=== PATIENT | male | born 1995 | race Hispanic/Latino ===

== ENCOUNTER 2023-09-14 22:30 | Inpatient (IN) | payer BC ==
--- OUTSIDE RECORDS SUMMARY | 2023-09-14 23:26 | XMS REPORT | Continuity of Care Document ---
:1995 Author Organization [facility] t Address [address] [facility] [address] [place] [id number] Care Team Providers Name Role Phone Jame Schneider Attending Clinician Unavailable Problems Condition Condition Condition Status Onset Resolution Last Treating Co mments Source Name Details Category Date Date Treatment Clinician Date HTN HTN Diagnosis Active Common (hypertens (hypertens Sp robyn ion), ion), - CHI benign benign [facility] Mixed Mixed Diagnosis Active Common hyperlipid hyperlipid Sp robyn emia emia [facility] Type 2 Type 2 Problem Active Common diabetes diabetes Spirit mellitus mellitus - [facility] with other with other 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 Noncomplia Noncomplia Diagnosis Active Common nce with nce with Spirit dietary dietary - [facility] restrictio restrictio [facility] Limited Limited Diagnosis Active Commo n range of range of Spirit motion of motion of - CH I shoulder shoulder [facility] Allergies, Adverse Reactions, Alerts This patient has no known allergies or adverse reactions. Medications Ordered Filled Start Stop Current Ordering Indication Dosage Frequency Signature Comments Components Source Medication Medication Date Date Medication? Clinician (SIG) Name Name Pietro Woodalldrewtonya 2018-11- No Jame 2 capsules Common 2-13 03-12 Schneider with meals Spirit 00:00: 00:00 - [facility]I 00 :00 [facility] Januvia Januvia 2019-0 Yes Jame 1 tablet C ommon 7-25 Schneider Spirit 00:00: - [facility]I 00 [facility] Lisinopril Lisinopril Yes Jame 1 tablet Common Schneider [facility] Metformin Metformin Yes Jame 1 tablet Common HCl HCl Schneider with meals [facility] Atorvastati Atorvastati Yes Jame 1 tablet Common n Calcium n Calcium Schneider Spir [facility] Victoza Victoza 2020- No Jame inject 1.8 Common 02-07 Schneider mg sq once Spirit 00:00 a day - : [facility] Procedures This patient has no known procedures. Encounters Start End Encounter Admission Attending Care Care Encounter Source Date/Time Date/Time Type Type Clinicians Facility Department ID 2021-12-24 Outpatient Schneider, [facility] [id number] Common 11:15:23 Jame [id number] [facility] 2019-11-10 2019-11-10 [id number] Common 08:00:00 08:00:[address] [facility] 2019-06-22 2019-06-22 [facility] [id number] Common 09:00:00 09:00:[address] [facility] 2019-05-23 2019-05-23 [facility] [id number] Common 14:00:00 14:00:[address] [facility] 2019-03-27 2019-03-27 [facility] [id number] Common 12:47:00 12:47:[address] [facility] 2019-01-09 2019-01-09 [facility] [id number] Common 09:15:00 09:15:[address] [facility] 2018-11-30 2018-11-30 [facility] [id number] Common 10:06:00 10:06:[address] [facility] 2018-09-05 2018-09-05 [facility] [id number] Common 11:15:00 11:15:[address] [facility] 2018-08-08 2018-08-08 [facility] [id number] Common 10:30:00 10:30:[address] [facility] 2018-08-05 2018-08-05 [facility] [id number] Common 14:32:00 14:32:[address] [facility] 2018-05-23 2018-05-23 [facility] [id number] Common 11:15:00 11:15:[address] [facility] 2018-03-21 2018-03-21 [facility] [id number] Common 11:15:00 11:15:[address] [facility] Results This patient has no known results.
[2023-09-14 23:38] VITALS: BMI 33.6
[2023-09-14] MEDS ORDERED: ZOLPIDEM TARTRATE 5 MG TABLET PO PRN (23:41)
[2023-09-14] MEDS ORDERED: ONDANSETRON 4 MG/2 ML VIAL IV PRN (23:41)
[2023-09-14] MEDS ORDERED: ACETAMINOPHEN 500 MG TAB PO PRN (23:41)
--- NOTE | 2023-09-14 23:46 | P.HP ---
Certification for Inpatient Patient admitted to: Observation With expected LOS: <2 Midnights Patient will require the following post-hospital care: None Practitioner: I am a practitioner with admitting privileges, knowledge of patient current condition, hospital course, and medical plan of care. Services: Services provided to patient in accordance with Admission requirements found in Title 42 Section 412.3 of the Code of Federal Regulations Patient History Date of Service: 09/15/23 Reason for admission: Left groin abscess History of Present Illness: 30-year-old male with a past medical history of hypertension, diabetes, presented to outside emergency room with left groin abscess x1 week. He reports fever x1 day, that has resolved, he reports drainage to distal left groin abscess, erythema drainage tender to touch. He denies recent injury, recent infection, trauma, shortness of breath, cough, chest pain. Plan to admit for left groin abscess surgery to consult for incision and drainage in the a.m. Allergies No Known Allergies Allergy (Unverified 09/14/23 23:30) - Past Medical/Surgical History Has patient received pneumonia vaccine in the past: Yes Diabetic: Yes -: HTN -: DM Past Surgical History: Patient denies surgical history - Social History Smoking Status: Never smoker Alcohol use: Yes CD- Drugs: No Caffeine use: Yes Place of Residence: Home Review of Systems 10-point ROS is otherwise unremarkable Physical Examination - Physical Exam General: Alert, In no apparent distress, Oriented x3 HEENT: Atraumatic, Normocephalic, PERRLA Neck: Supple, 2+ carotid pulse no bruit, JVD not distended Respiratory: Clear to auscultation bilaterally, Normal air movement Cardiovascular: No edema, Normal pulses, Regular rate/rhythm Capillary refill: <2 Seconds Gastrointestinal: Normal bowel sounds, Soft and benign Musculoskeletal: No clubbing, No swelling Integumentary: Other (Left groin abscess, erythema, tender to touch, with serosanguineous drainage.) Neurological: Normal speech, Normal strength at 5/5 x4 extr Assessment and Plan - Plan Assessment plan Left inguinal abscess Hypertension Diabetes DVT prophylaxis SCDs Assessment plan Left inguinal abscess Surgery to consult, infectious disease to consult, IV Levaquin, IV cefepime, As needed analgesics, antiemetics, Trend WBCs, Hypertension Diabetes Resume appropriate home medications A1c in the a.m. N.p.o. after midnight Full code DVT prophylaxis SCDs Discharge Plan: Home Plan to discharge in: 24 Hours - Advance Directives Does patient have a Living Will: No Does patient have a Durable POA for Healthcare: Yes - Code Status/Comfort Care Code Status: Full Code Physician Review: Patient Assessed, Agree with Above Assessment and Plan Critical Care: No Time Spent Managing Pts Care (In Minutes): 50
[2023-09-15 03:46] LABS: Hematocrit 38.1 % (39.6-49.0); Lymphocytes % 20.8 % (15.3-44.8); MCV 83.2 fL (80-100); MPV 8.4 fL (7.6-11.3); Platelets 264 thou/uL (152-406); RBC Red Blood Cell Count 4.58 M/uL (4.33-5.43)
[2023-09-15 03:47] LABS: Magnesium 1.9 mg/dL (1.6-2.4); Potassium 3.2 mEq/L (3.5-5.1)
[2023-09-15] MEDS ORDERED: POTASSIUM CL 40 MEQ in NA CHLORIDE 0.9% 500 ML IV SCH (05:00)
[2023-09-15] MEDS: KCL 20 MEQ/100 mL IVPB 100 ML IV SCH ×2 (05:18→08:23)
[2023-09-15] MEDS ORDERED: NA CHLORIDE 0.9% 250 ML ONE (05:28)
[2023-09-15] MEDS ORDERED: CEFEPIME 1 GM in NA CHLORIDE 0.9% 100 ML IV SCH (09:00)
[2023-09-15] MEDS ORDERED: VANCOMYCIN 2 GM in NA CHLORIDE 0.9% 500 ML IVPB ONE (11:30)
[2023-09-15 12:25] LABS: Specific Gravity > 1.030 (1.005-1.030); Urine Bacteria None Seen /HPF (<20); Urine Bilirubin NEGATIVE (Negative); Urine Blood Negative (Negative); Urine Clarity Extremely Turbid (Clear); Urine Color Light-Yellow (Yellow); Urine Glucose 4+ (Over) (Negative); Urine Mucus Slight /HPF (None Seen); Urine Protein TRACE (Negative); Urine RBC <5 /HPF (None Seen); Urine Urobilinogen Normal (Normal); Urine pH 5.5 (5.0-7.0)
[2023-09-15] MEDS ORDERED: LIDOCAINE 2% MPF 5 ML VIAL ONE (13:01)
[2023-09-15] MEDS ORDERED: NA CHLORIDE 0.9% 1,000 ML ONE (13:02)
[2023-09-15] MEDS ORDERED: HYDROMORPHONE HCL 2 MG/ML inj ONE (13:02)
[2023-09-15] MEDS ORDERED: MIDAZOLAM HCL 2 MG/2 ML INJ ONE (13:02)
[2023-09-15] MEDS ORDERED: propofoL 200 MG/20 ML VIAL IV ONE (13:02)
--- NOTE | 2023-09-15 13:52 | P.OP ---
Preoperative diagnosis: Abscess of the left groin Postoperative diagnosis: The same Primary procedure: Incision, drainage, sharp debridement of abscess to the left groin Anesthesia: General Estimated blood loss: Less than 10 cc Specimen: None sent Operative Technique: The patient brought the operating room and placed supine on the table. After the induction of adequate general endotracheal anesthesia, the area of the left leg, perineal area was scrubbed with a Betadine solution, he was draped in the usual aseptic manner. Attention was turned toward towards this area that was draining pus on the left thigh. This was opened with an 11 blade for a distance of approximately 1-1/2 cm. We were now able to place a finger inside us to see that extended upward for approximately 4 inches. This hemostat was placed and through this incision, a counterincision was made over the tip, and 1/4 inch Chester drain was now fed down to the insertion site. The drain was then tied on itself. The abscess cavity itself was curetted using a cutting surgical curette, and debrided with a cutting 11 blade. The abscess also had a inferior component. This extended down towards the posterior part of the upper thigh and the general direction of the perineal body. At the depth of this a hemostat was inserted, a counterincision was made over the tips, once again a. Chester drain was brought up through this incision, and tied on itself. This abscess cavity was also communicating with the 1 on top. These were all broken down again using a cutting surgical curette. At this point adequate drainage having been established, the area was covered with a surgical dressing. At the end of procedure he was in a stable condition was sent to the recovery room. Needle sponge instrument count were correct. Total size of the abscess cavities measured approximately 6 cm x 4 cm on the upper part and approximately 4 cm x 3 cm on the lower part with the depth of the abscess being approximately 2 cm total Complications: None Drain(s): Other (2/4 inch Tani drains) Transferred to: Recovery Room Condition: Good
[2023-09-15 14:02] VITALS: O2SAT 100
--- NOTE | 2023-09-15 14:08 | P.PN ---
Subjective Date of Service: 09/15/23 Chief Complaint: Left groin abscess Status post I&D by Dr. Coleman today. No fever. Physical Examination - Vital Signs Temperature: 97.9 F Blood Pressure: 149/92 Pulse: 86 Respirations: 12 Pulse Ox (%): 98 - Studies Laboratory Data (last 24 hrs) 09/15/23 09/15/23 02:10 02:10 WBC 9.70 Hgb 13.5 L Hct 38.1 L Plt Count 264 Sodium 136 Potassium 3.2 L BUN 13 Creatinine 0.66 L Glucose 252 H Magnesium 1.9 Assessment And Plan - Plan Physical Exam General: Alert, In no apparent distress, Oriented x3 Neck: Supple, 2+ carotid pulse no bruit, JVD not distended Respiratory: Clear to auscultation bilaterally, Normal air movement Cardiovascular: No edema, Normal pulses, Regular rate/rhythm Gastrointestinal: Normal bowel sounds, Soft and benign Musculoskeletal: No clubbing, No swelling Integumentary: Left groin abscess, erythema, tender to touch, with serosanguineous drainage. Neurological: Normal speech, Normal strength at 5/5 x4 extr Diagnosis Left inguinal abscess Hypertension Diabetes Plan: Left inguinal abscess Status post I&D by Dr. Coleman Continue IV cefepime and vancomycin. Follow deep tissue wound cultures. As needed analgesics, antiemetics, Hypertension Resume home medications DM type II Uncontrolled Hemoglobin A1c is 12.5 I recommended switching his metformin to insulin therapy for better blood sugar control but patient would like to confer with his PCP to make decision regarding treatment for his high hemoglobin A1c. Aggressive insulin sliding scale. Lantus insulin for now. Full code DVT prophylaxis: Lovenox Discharge Plan: Home
[2023-09-15] MEDS: HYDROMORPHONE HCL 1 MG/ML INJ ONE ×2 (14:35→14:40)
[2023-09-15] MEDS: INSULIN GLARGINE 100 UNIT/ML SQ SCH (15:34)
[2023-09-15] MEDS: CEFEPIME 2 GM in NA CHLORIDE 0.9% 100 ML IV SCH (16:42)
--- NOTE | 2023-09-15 17:09 | P.CNS ---
Date of Consult: 09/15/23 Reason for Consult: left groin abscess Chief Complaint: Left groin abscess History of Present Illness: Patient is a 28 yo male with no significant past medical history who presented to the ED due to worsening left groin abscess. He reports the abscess has been present for about 1 week for which he was prescribed dicloxacillin po by a doctor in [place], without improvement in symptoms. Patient was admitted for left groin abscess; general surgery and infectious diseases consulted. Allergies No Known Allergies Allergy (Unverified 09/14/23 23:30) - Past Medical/Surgical History Diabetic: Yes -: HTN -: DM - Social History Alcohol use: Yes CD- Drugs: No Caffeine use: Yes Place of Residence: Home Review of Systems 10-point ROS is otherwise unremarkable Integumentary: Other (left groin abscess) Physical Examination Temp Pulse Resp BP Pulse Ox 97.9 F 84 14 131/70 95 09/15/23 16:00 09/15/23 16:00 09/15/23 16:00 09/15/23 16:00 09/15/23 16:00 General: Alert, In no apparent distress, Oriented x3 HEENT: Atraumatic, Normocephalic, PERRLA Neck: Supple, JVD not distended Respiratory: Clear to auscultation bilaterally, Normal air movement Cardiovascular: No edema, Normal pulses Gastrointestinal: Normal bowel sounds, Soft and benign Musculoskeletal: No clubbing, No swelling Integumentary: Other (left groin abscess with purulent drainage) Neurological: Normal speech, Normal strength at 5/5 x4 extr, Normal tone, Normal affect Laboratory Data (last 24 hrs) 09/15/23 09/15/23 02:10 02:10 WBC 9.70 Hgb 13.5 L Hct 38.1 L Plt Count 264 Sodium 136 Potassium 3.2 L BUN 13 Creatinine 0.66 L Glucose 252 H Magnesium 1.9 Microbiology Data - Reviewed Imagings Data: - Reviewed Conclusions/Impression: Problem List Left Groin Abscess Left Groin Abscess - On Cefepime and Vancomycin (09/15-) - Pending I&D - Wound culture 09/15: pending - No leukocytosis. Afebrile. Recommendations - Continue Cefepime and Vancomycin for now. Pending I&D. Follow up with wound culture results. - Continue wound care per surgery/wound care team - Monitor for worsening signs/symptoms of infection - Follow up with surgery report Case discussed with Andrew Rico
[2023-09-15] MEDS ORDERED: Levofloxacin 750mg IV 750 MG/150 ML BAG IV SCH (20:00)
[2023-09-15] MEDS: VANCOMYCIN 1.5 GM in NA CHLORIDE 0.9% 500 ML IVPB SCH (21:09)
[2023-09-15] MEDS: HYDROCODONE/APAP 5/325 MG TAB PO PRN (21:23)
[2023-09-16] MEDS: CEFEPIME 2 GM in NA CHLORIDE 0.9% 100 ML IV SCH ×3 (01:19→17:40)
[2023-09-16 03:10] LABS: Absolute Lymphocytes (CBC) 2.1 K/uL (0.7-4.9); Hematocrit 41.1 % (39.6-49.0); Lymphocytes % 18.1 % (15.3-44.8); MCV 84.5 fL (80-100); MPV 8.3 fL (7.6-11.3); Platelets 289 thou/uL (152-406); RBC Red Blood Cell Count 4.86 M/uL (4.33-5.43)
--- NOTE | 2023-09-16 08:18 | P.PN ---
Date of Service: 09/16/23 Chief Complaint: Left groin abscess Subjective: patient seen and examined at bedside. Denies any new or worsening complaints at this time. s/p I&D of left groin abscess yesterday, tolerated procedure well. Physical Examination Temp Pulse Resp BP Pulse Ox 97.9 F 70 16 135/71 98 09/16/23 04:00 09/16/23 04:00 09/16/23 04:00 09/16/23 04:00 09/16/23 04:00 General: Alert, In no apparent distress, Oriented x3 HEENT: Atraumatic, Normocephalic, PERRLA Neck: Supple, JVD not distended Respiratory: Clear to auscultation bilaterally, Normal air movement Cardiovascular: No edema, Normal pulses Gastrointestinal: Normal bowel sounds, Soft and benign Musculoskeletal: No clubbing, No swelling Integumentary: Left groin abscess s/p I&D with maryann drain Neurological: Normal speech, Normal strength at 5/5 x4 extr, Normal tone, Normal affect Laboratory Data - Reviewed Microbiology Data - Reviewed Imagings Data: - Reviewed Assessment and Plan Problem List Left Groin Abscess Diabetes Mellitus type II Left Groin Abscess - On Cefepime and Vancomycin (09/15-) - s/p incision, drainage and sharp debridement of left groin abscess on 09/[address] Coleman. Culture obtained. See operative report for further details - Wound culture 09/15: pending Recommendations - Continue Cefepime and Vancomycin for now. - Follow up with wound culture results obtained from I&D - Continue left groin surgical site care per Dr. Colmean - DMII: Strict blood glucose control. HgbA1c 12.5 Case discussed with Andrew Rico
[2023-09-16] MEDS: INSULIN GLARGINE 100 UNIT/ML SQ SCH (09:00)
[2023-09-16] MEDS: VANCOMYCIN 1.5 GM in NA CHLORIDE 0.9% 500 ML IVPB SCH ×2 (09:57→20:17)
--- NOTE | 2023-09-16 14:30 | P.PN ---
Subjective Date of Service: 09/16/23 Chief Complaint: Left groin abscess Status post I&D by Dr. Coleman 09/15 No fever. He states his pain is well controlled. Physical Examination - Vital Signs Temperature: 97.0 F Blood Pressure: 132/78 Pulse: 79 Respirations: 14 Pulse Ox (%): 97 - Studies Laboratory Data (last 24 hrs) 09/16/23 09/16/23 02:28 02:28 WBC 11.40 H Hgb 14.2 Hct 41.1 Plt Count 289 Sodium 134 L Potassium 4.0 D BUN 13 Creatinine 0.73 Glucose 247 H Assessment And Plan - Plan Physical Exam General: Alert, In no apparent distress, Oriented x3 Neck: Supple, 2+ carotid pulse no bruit, JVD not distended Respiratory: Clear to auscultation bilaterally, Normal air movement Cardiovascular: No edema, Normal pulses, Regular rate/rhythm Gastrointestinal: Normal bowel sounds, Soft and benign Musculoskeletal: No clubbing, No swelling Integumentary: Left groin incision and drainage wound looks clean, surrounding erythema resolved. Diagnosis Left inguinal abscess Hypertension Diabetes Plan: Left inguinal abscess Status post I&D by Dr. Coleman Continue IV cefepime and vancomycin. Deep tissue wound culture is pending. As needed analgesics, antiemetics, Hypertension Resume home medications DM type II Uncontrolled Hemoglobin A1c is 12.5 I recommended switching his metformin to insulin therapy for better blood sugar control but patient would like to confer with his PCP to make decision regarding treatment for his high hemoglobin A1c. Aggressive insulin sliding scale. Titrate Lantus insulin. Full code DVT prophylaxis: Lovenox Discharge Plan: Home
[2023-09-17] MEDS: CEFEPIME 2 GM in NA CHLORIDE 0.9% 100 ML IV SCH ×2 (02:50→09:23)
--- NOTE | 2023-09-17 08:38 | P.PN ---
Date of Service: 09/17/23 Chief Complaint: Left groin abscess Subjective: Improving. Patient seen and examined at bedside. + mild groin pain at incision site, well controlled with pain medication No acute events reported overnight. Denies any worsening complaints. Physical Examination Temp Pulse Resp BP Pulse Ox 97.8 F 71 18 119/76 99 09/17/23 04:00 09/17/23 04:00 09/17/23 04:00 09/17/23 04:00 09/17/23 04:00 General: Alert, In no apparent distress, Oriented x3 HEENT: Atraumatic, Normocephalic, PERRLA Neck: Supple, JVD not distended Respiratory: Clear to auscultation bilaterally, Normal air movement Cardiovascular: No edema, Normal pulses Gastrointestinal: Normal bowel sounds, Soft and benign Musculoskeletal: No clubbing, No swelling Integumentary: Left groin abscess s/p I&D with maryann drain Neurological: Normal speech, Normal strength at 5/5 x4 extr, Normal tone, Normal affect Laboratory Data - Reviewed Microbiology Data - Reviewed Imagings Data: - Reviewed Medications List: Reviewed Assessment and Plan Problem List Left Groin Abscess Diabetes Mellitus type II Left Groin Abscess - Failed outpatient therapy on Dicloxacillin from in [place] - s/p incision, drainage and sharp debridement of left groin abscess on 09/[address] Coleman. Culture obtained. See operative report for further details - Wound culture 09/15: pending - preliminary gram stain: Gram-positive cocci and gram-negative rods - Currently on Cefepime and Vancomycin (09/15-) Recommendations Due to uncontrolled diabetes, location of wound left groin high risk for re- infection. Recommend continuing antibiotic therapy for 14 days total. (09/15 to 09/29) - Follow up with wound final wound culture and sensitivity results - Continue left groin surgical site care per Dr. Coleman - DMII: Strict blood glucose control. HgbA1c 12.5 - Follow up with PCP as outpatient for diabetes management Case discussed with Andrew Rico
[2023-09-17] MEDS: INSULIN GLARGINE 100 UNIT/ML SQ SCH ×2 (09:00→09:24)
[2023-09-17] MEDS ORDERED: VANCOMYCIN 1.75 GM in NA CHLORIDE 0.9% 500 ML IVPB SCH (09:00)
[2023-09-17] MEDS: HYDROCODONE/APAP 5/325 MG TAB PO PRN (10:49)
--- NOTE | 2023-09-17 13:33 | P.DS ---
Admission Date: 09/14/23 Discharge Date: 09/17/23 Disposition: ROUTINE DISCHARGE Discharge Condition: FAIR Reason for Admission: Left groin abscess Brief History of Present Illness: 30-year-old male with a past medical history of hypertension, diabetes, presented to outside emergency room with left groin abscess x1 week. He reported fever x1 day, that has resolved. He reports drainage to distal left groin abscess, erythema drainage tender to touch. He denied recent injury, recent infection, trauma, shortness of breath, cough, chest pain. Patient did not meet criteria for sepsis. No leukocytosis. He was admitted for further management. Hospital Course: Diagnosis Left inguinal abscess Hypertension Diabetes Patient was admitted to the medical floor and the following medical problems addressed: Plan: Left inguinal abscess Status post I&D by Dr. Coleman Patient treated with IV cefepime and vancomycin. Deep tissue wound culture: Polymicrobial growth He is discharged with Augmentin and Bactrim. Follow-up with Dr. Coleman next week the wound clinic. Hypertension Continued home medications DM type II Uncontrolled Hemoglobin A1c is 12.5 I recommended switching his metformin to insulin therapy for better blood sugar control but patient would like to confer with his PCP to make decision regarding treatment for his high hemoglobin A1c. Blood sugar was managed with aggressive insulin sliding scale and Lantus insulin as inpatient. Vital Signs/Physical Exam: Temp Pulse Resp BP Pulse Ox 97.4 F 73 14 148/82 H 98 09/17/23 12:00 09/17/23 12:00 09/17/23 12:00 09/17/23 12:00 09/17/23 12:00 Laboratory Data at Discharge: WBC 11.40 thou/uL (4.3-10.9) H 09/16/23 02:28 Hgb 14.2 g/dL (13.6-17.9) 09/16/23 02:28 Hct 41.1 % (39.6-49.0) 09/16/23 02:28 Plt Count 289 thou/uL (152-406) 09/16/23 02:28 Sodium 134 mEq/L (136-145) L 09/16/23 02:28 Potassium 4.0 mEq/L (3.5-5.1) D 09/16/23 02:28 BUN 13 mg/dL (7-18) 09/16/23 02:28 Creatinine 0.73 mg/dL (0.70-1.30) 09/16/23 02:28 Glucose 247 mg/dL (74-106) H 09/16/23 02:28 Magnesium 1.9 mg/dL (1.6-2.4) 09/15/23 02:10 Home Medications: Amox/Clavulanate [Augmentin 875-125 Tab] 875 mg PO BID #20 tab 09/17/23 Hydrocodone 5/APAP 325 [[place] 5/325*] 1 tab PO Q4H PRN #12 tab 09/17/23 Smz./Tmp. [Bactrim Ds 800 MG/160 MG] 1 tab PO BID #20 tab 09/17/23 New Medications: Amox/Clavulanate [Augmentin 875-125 Tab] 875 mg PO BID #20 tab Smz./Tmp. [Bactrim Ds 800 MG/160 MG] 1 tab PO BID #20 tab Hydrocodone 5/APAP 325 [[place] 5/325*] 1 tab PO Q4H PRN #12 tab PRN Reason: Pain Scale 5-7 (Moderate) Diet: ADA Activity: Ad lawanda Followup: Dariel Coleman MD [ACTIVE - CAN ADMIT] - Time spent managing pt's care (in minutes): 38
[2023-09-17 16:54] VITALS: BP 131/84; TEMP 97.3
[2023-09-17] MEDS ORDERED: SMZ./TMP. 800/160 MG TABLET PO SCH (21:00)
[2023-09-17] MEDS ORDERED: AMOX/K CLAV 875 MG TAB PO SCH (21:00)
--- NOTE | 2023-10-06 14:23 | P.CNS ---
Date of Consult: 10/06/23 PC: I was asked see this patient regards to a right groin abscess. HPC: Patient has been complaining of pain and discomfort in his right groin for approximately the last week. Thinks it may have been because of the close of been rubbing on them. Presents now for management. PSHx: NAD PMHx: Borderline diabetes Social Hx: No known allergies Sys R: No cough, wheeze, shortness of breath. No chest pain or palpitations. Denies any urinary complaints O/E: Awake alert vital signs are stable HEENT: Not jaundiced Chest: Air entry equal bilaterally Abd: Negative abdominal exam, however on the right hemiscrotum there is a large area of induration pain and swelling with surrounding redness. No crepitus is palpable. It is not actively draining but looks like it could start soon. [place]: Intact Data: Elevated white cell count, right groin abscess Impression: Right groin abscess Plan: I will taken to the operating room for incision, drainage, sharp debridement of this abscess. We will at that time see how extensive it is. There is a concern for possible fasciitis. The risks of this procedure have been discussed with the patient, he understands and wants to proceed.
== END 2023-09-17 18:57 | disposition home or self-care (01) | DRG 581 ==
LOC: 2ND 22:30
PROVIDERS: ADMIT Internal Medicine; ATTEND Internal Medicine
PROC: 0KBP0ZZ Excision of Left Hip Muscle, Open Approach (ICD-10-PCS; principal; 2023-09-15 13:00)
DX: L02.214 Cutaneous abscess of groin (principal); I10 Essential (primary) hypertension; E11.9 Type 2 diabetes mellitus without complications
CPT/HCPCS: 36415; 80048; 80202; 81001; 82947; 83036; 83735; 85025; 87070; 87077; 87186; 87205; J0692; J1170; J2001; J2250; J2704; J3480; J7030; J7040; J7050